=== PATIENT | female | born 1975 | race Caucasian/White ===

== ENCOUNTER 2022-10-14 10:49 | Inpatient (IN) ==
[2022-10-14 11:55] LABS: Basophils % 0.1 % (0.0-0.8); Eosinophils # 0.1 10*3/uL (0.0-0.87); Eosinophils % 0.4 % (0.00-10.9); Hematocrit 41.9 VOL% (35.7-47.0); Immature Granulocytes % 0.9 %; Immature Granulocytes Absolute 0.22 #; Lymphocytes # 1.8 10*3/uL (1.4-4.0); Lymphocytes % 7.1 % (21.3-54.2); Mean Corpuscular HGB Conc 33.4 GM/DL (32-36); Mean Corpuscular Volume 92.5 FL (87-102); Monocytes # 1.7 10*3/uL (0.11-0.8); Monocytes % 6.8 % (1.7-12.7); Neutrophils % 84.7 % (38.7-73.9); Platelet Count 211 T/CUMM (130-400); Red Blood Count 4.53 MC/CUMM (3.8-5.5); Red Cell Distribution Width 13.2 % (9.3-17.3); White Blood Count 25.4 T/CUMM (4-12)
[2022-10-14 12:03] LABS: Albumin 3.2 G/DL (3.4-5.0); Bilirubin,Total 1.1 MG/DL (0.20-1.00); Potassium 3.5 MMOL/L (3.5-5.1); Total Protein 7.5 G/DL (6.4-8.2)
[2022-10-14] MEDS ORDERED: CLINDAMYCIN INJ 900 MG/50 ML PREMIX IV STA (12:07)
[2022-10-14] MEDS ORDERED: ONDANSETRON 4 MG/2 ML VIAL IV PRN (12:10)
[2022-10-14] MEDS ORDERED: ACETAMINOPHEN 325 MG TABLET PO PRN ×2 (12:10→13:12)
[2022-10-14 12:22] LABS: Lymphocytes 6 % (20-55); Total Cells Counted 100
[2022-10-14 12:23] LABS: Platelet Estimate Adequate
[2022-10-14] MEDS ORDERED: PIPERACILLIN/TAZOBACTAM 3,375 MG in SODIUM CHLORIDE 0.9% 100 ML IV STA (13:09)
[2022-10-14] MEDS ORDERED: levETIRAcetam 500 MG/5 ML VIAL IV STA (13:09)
[2022-10-14] MEDS ORDERED: PROMETHAZINE 25 MG TABLET PO PRN (13:16)
[2022-10-14] MEDS ORDERED: HydrOXYzine PAMOATE 25 MG CAPSULE PO PRN (13:16)
[2022-10-14] MEDS: GABAPENTIN 300 MG CAPSULE PO SCH ×2 (16:44→20:21)
[2022-10-14] MEDS: SODIUM CHLORIDE 0.45% 1,000 ML IV SCH (16:46)
[2022-10-14] MEDS: VANCOMYCIN INJ 750 MG in SODIUM CHLORIDE 0.9% 250 ML IV SCH (16:47)
[2022-10-14] MEDS: PIPERACILLIN/TAZOBACTAM 3,375 MG in SODIUM CHLORIDE 0.9% 100 ML IV SCH (20:21)
[2022-10-14] MEDS: TOPIRAMATE 200 MG TABLET PO SCH (20:21)
[2022-10-14] MEDS: NAPROXEN 500 MG TABLET PO PRN (20:22)
[2022-10-14] MEDS: FLUDROCORTISONE 0.1 MG TABLET PO SCH (20:22)
[2022-10-14] MEDS: levETIRAcetam 500 MG TABLET PO SCH (20:22)
[2022-10-14] MEDS: DOCUSATE SODIUM 100 MG CAPSULE PO SCH (20:22)
[2022-10-14] MEDS: DIAZEPAM 5 MG TABLET PO SCH (20:22)
[2022-10-14] MEDS: POTASSIUM CHLORIDE 10 MEQ TABLET PO SCH (20:22)
[2022-10-15] MEDS: VANCOMYCIN INJ 750 MG in SODIUM CHLORIDE 0.9% 250 ML IV SCH ×2 (04:02→16:30)
[2022-10-15] MEDS: PIPERACILLIN/TAZOBACTAM 3,375 MG in SODIUM CHLORIDE 0.9% 100 ML IV SCH ×3 (05:03→21:06)
[2022-10-15 05:09] LABS: Eosinophils # 0.3 10*3/uL (0.0-0.87); Eosinophils % 1.3 % (0.00-10.9); Hematocrit 39.2 VOL% (35.7-47.0); Immature Granulocytes % 1.1 %; Immature Granulocytes Absolute 0.25 #; Lymphocytes # 3.6 10*3/uL (1.4-4.0); Lymphocytes % 15.3 % (21.3-54.2); Mean Corpuscular HGB Conc 33.2 GM/DL (32-36); Mean Corpuscular Volume 93.8 FL (87-102); Mean Platelet Volume 10.4 FL (9.6-12.0); Monocytes # 1.5 10*3/uL (0.11-0.8); Monocytes % 6.4 % (1.7-12.7); Neutrophils % 75.9 % (38.7-73.9); Platelet Count 199 T/CUMM (130-400); Red Blood Count 4.18 MC/CUMM (3.8-5.5); Red Cell Distribution Width 13.2 % (9.3-17.3); White Blood Count 23.7 T/CUMM (4-12)
[2022-10-15 05:32] LABS: Band Neutrophils 2 % (0-10); Eosinophils 1 % (0-10); Lymphocytes 14 % (20-55); Total Cells Counted 100
[2022-10-15 05:33] LABS: Platelet Estimate Adequate
[2022-10-15] MEDS: SODIUM CHLORIDE 0.45% 1,000 ML IV SCH ×4 (07:27→16:30)
[2022-10-15] MEDS ORDERED: MIDAZOLAM 2 MG/2 ML VIAL ONE (08:01)
[2022-10-15] MEDS ORDERED: LIDOCAINE 2% 5 ML VIAL ONE (08:01)
[2022-10-15] MEDS ORDERED: propofoL 200 MG/20 ML VIAL IV ONE (08:01)
[2022-10-15] MEDS ORDERED: fentaNYL 100 MCG/2 ML VIAL ONE (08:02)
[2022-10-15] MEDS ORDERED: SEVOFLURANE 1 UNIT/15 MINUTE INH ONE (08:54)
[2022-10-15] MEDS ORDERED: ONDANSETRON 4 MG/2 ML VIAL ONE (08:54)
[2022-10-15] MEDS ORDERED: LACTATED RINGERS 1,000 ML IV SCH (09:00)
[2022-10-15] MEDS: levETIRAcetam 500 MG TABLET PO SCH ×2 (10:02→21:04)
[2022-10-15] MEDS: GABAPENTIN 300 MG CAPSULE PO SCH ×3 (10:02→21:04)
[2022-10-15] MEDS: TOPIRAMATE 200 MG TABLET PO SCH ×2 (10:02→21:03)
[2022-10-15] MEDS: PANTOPRAZOLE 40 MG TABLET PO SCH (10:02)
[2022-10-15] MEDS: CHOLECALCIFEROL 5,000 UNIT TABLET PO SCH (10:02)
[2022-10-15] MEDS: FLUDROCORTISONE 0.1 MG TABLET PO SCH ×2 (10:02→21:04)
[2022-10-15] MEDS: DOCUSATE SODIUM 100 MG CAPSULE PO SCH ×2 (10:02→21:03)
[2022-10-15] MEDS: ROSUVASTATIN 20 MG TABLET PO SCH (10:02)
[2022-10-15] MEDS: POTASSIUM CHLORIDE 10 MEQ TABLET PO SCH ×2 (10:02→21:04)
[2022-10-15] MEDS: DULoxetine 30 MG CAPSULE PO SCH (10:02)
[2022-10-15] MEDS: VITAMIN E 400 UNIT CAPSULE PO SCH (10:03)
[2022-10-15] MEDS: ASCORBIC ACID 500 MG TABLET PO SCH (10:03)
[2022-10-15] MEDS: DIAZEPAM 5 MG TABLET PO SCH (21:04)
[2022-10-16] MEDS: NAPROXEN 500 MG TABLET PO PRN ×2 (00:09→21:57)
[2022-10-16] MEDS: SODIUM CHLORIDE 0.45% 1,000 ML IV SCH ×3 (00:10→19:30)
[2022-10-16] MEDS: VANCOMYCIN INJ 750 MG in SODIUM CHLORIDE 0.9% 250 ML IV SCH ×2 (04:10→18:10)
[2022-10-16] MEDS: PIPERACILLIN/TAZOBACTAM 3,375 MG in SODIUM CHLORIDE 0.9% 100 ML IV SCH ×3 (06:08→20:10)
[2022-10-16] MEDS: TOPIRAMATE 200 MG TABLET PO SCH ×2 (09:25→20:09)
[2022-10-16] MEDS: VITAMIN E 400 UNIT CAPSULE PO SCH (09:25)
[2022-10-16] MEDS: levETIRAcetam 500 MG TABLET PO SCH ×2 (09:25→20:09)
[2022-10-16] MEDS: DOCUSATE SODIUM 100 MG CAPSULE PO SCH ×2 (09:25→20:09)
[2022-10-16] MEDS: ROSUVASTATIN 20 MG TABLET PO SCH (09:25)
[2022-10-16] MEDS: POTASSIUM CHLORIDE 10 MEQ TABLET PO SCH ×2 (09:25→20:09)
[2022-10-16] MEDS: ASCORBIC ACID 500 MG TABLET PO SCH (09:25)
[2022-10-16] MEDS: GABAPENTIN 300 MG CAPSULE PO SCH ×3 (09:25→20:10)
[2022-10-16] MEDS: DULoxetine 30 MG CAPSULE PO SCH (09:25)
[2022-10-16] MEDS: CHOLECALCIFEROL 5,000 UNIT TABLET PO SCH (09:25)
[2022-10-16] MEDS: PANTOPRAZOLE 40 MG TABLET PO SCH (09:25)
[2022-10-16] MEDS: FLUDROCORTISONE 0.1 MG TABLET PO SCH ×2 (09:27→20:10)
[2022-10-16] MEDS: DIAZEPAM 5 MG TABLET PO SCH (20:09)
[2022-10-17] MEDS: VANCOMYCIN INJ 750 MG in SODIUM CHLORIDE 0.9% 250 ML IV SCH (04:08)
[2022-10-17] MEDS: SODIUM CHLORIDE 0.45% 1,000 ML IV SCH ×3 (05:40→10:11)
[2022-10-17] MEDS: PIPERACILLIN/TAZOBACTAM 3,375 MG in SODIUM CHLORIDE 0.9% 100 ML IV SCH (05:41)
[2022-10-17 05:57] LABS: Basophils % 0.1 % (0.0-0.8); Eosinophils # 0.5 10*3/uL (0.0-0.87); Eosinophils % 3.8 % (0.00-10.9); Hematocrit 34.3 VOL% (35.7-47.0); Hemoglobin 11.2 GM/DL (12.0-16.0); Immature Granulocytes % 0.5 %; Immature Granulocytes Absolute 0.06 #; Lymphocytes # 3.1 10*3/uL (1.4-4.0); Lymphocytes % 25.8 % (21.3-54.2); Mean Corpuscular HGB Conc 32.7 GM/DL (32-36); Mean Corpuscular Volume 94.2 FL (87-102); Monocytes # 0.9 10*3/uL (0.11-0.8); Monocytes % 7.1 % (1.7-12.7); Neutrophils % 62.7 % (38.7-73.9); Platelet Count 231 T/CUMM (130-400); Red Blood Count 3.64 MC/CUMM (3.8-5.5); Red Cell Distribution Width 13.2 % (9.3-17.3); White Blood Count 11.9 T/CUMM (4-12)
[2022-10-17] MEDS: FLUDROCORTISONE 0.1 MG TABLET PO SCH (09:08)
[2022-10-17] MEDS: DULoxetine 30 MG CAPSULE PO SCH (09:08)
[2022-10-17] MEDS: TOPIRAMATE 200 MG TABLET PO SCH (09:08)
[2022-10-17] MEDS: ASCORBIC ACID 500 MG TABLET PO SCH (09:08)
[2022-10-17] MEDS: PANTOPRAZOLE 40 MG TABLET PO SCH (09:08)
[2022-10-17] MEDS: CHOLECALCIFEROL 5,000 UNIT TABLET PO SCH (09:08)
[2022-10-17] MEDS: GABAPENTIN 300 MG CAPSULE PO SCH (09:08)
[2022-10-17] MEDS: levETIRAcetam 500 MG TABLET PO SCH (09:08)
[2022-10-17] MEDS: VITAMIN E 400 UNIT CAPSULE PO SCH (09:08)
[2022-10-17] MEDS: DOCUSATE SODIUM 100 MG CAPSULE PO SCH (09:09)
[2022-10-17] MEDS: POTASSIUM CHLORIDE 10 MEQ TABLET PO SCH (09:09)
[2022-10-17] MEDS: ROSUVASTATIN 20 MG TABLET PO SCH (09:09)
[2022-10-17 10:08] VITALS: BP 126/80
== END 2022-10-17 10:34 | disposition home health service (06) | DRG 383 ==
LOC: N.ED 10:49 → N.2E 15:20
PROVIDERS: ADMIT Family Medicine; ATTEND Family Medicine